=== PATIENT | female | born 1935 | race Caucasian/White ===

== ENCOUNTER → 2024-06-19 13:34 | Outpatient (REF) | payer OTHER, SELFPAY | LOC: HWRAD 13:34 | PROVIDERS: ATTENDING PHYSICIAN Nurse Practitioner; FAMILY PHYSICIAN Family Medicine | DX: N39.41 Urge incontinence (principal); N32.81 Overactive bladder | CPT/HCPCS: 76770; 76856 ==

== ENCOUNTER → 2024-10-24 13:07 | Outpatient (REF) | payer OTHER, SELFPAY | LOC: HWRAD 13:07 | PROVIDERS: ATTENDING PHYSICIAN Dentist Periodontics; FAMILY PHYSICIAN Family Medicine | DX: Z03.821 Encounter for observation for suspected ingested foreign body ruled out (principal) | CPT/HCPCS: 71046 ==